=== PATIENT | male | born 1935 | race Caucasian/White ===

== ENCOUNTER 2020-06-20 18:18 | Emergency (ER) | payer OTHER ==
[~2020-06-20 18:18] MED LIST: GLIM2TAB30 PO; LEVO5TAB13 PO; NAPR375T6 PO; OMEP40CA13 PO; PRAV20TA4 PO; TYL3 PO; UBID100C45 PO
== END 2020-06-20 20:29 | disposition home or self-care (01) ==
LOC: EDH 18:18
DX: K40.90 Unilateral inguinal hernia, without obstruction or gangrene, not specified as recurrent (principal); I10 Essential (primary) hypertension; E11.9 Type 2 diabetes mellitus without complications; Z95.0 Presence of cardiac pacemaker
CPT/HCPCS: 76870

== ENCOUNTER → 2020-09-03 | Outpatient (CLI) | payer OTHER ==
[~2020-09-03] MED LIST changes: -OMEP40CA13 PO; +OMEP40CA21 PO
== END | disposition home or self-care (01) ==
LOC: SHCH 13:47
PROVIDERS: ATTEND Internal Medicine Cardiovascular Disease
DX: I10 Essential (primary) hypertension (principal); E78.5 Hyperlipidemia, unspecified
CPT/HCPCS: 93306; 93356

== ENCOUNTER → 2020-09-25 | Outpatient (CLI) | payer OTHER ==
[~2020-09-25] VITALS: Ht 185.4 cm; Wt 75.7 kg
[~2020-09-25] MED LIST changes: +REGADENOSON 0.4 MG/5 ML PF SYG IVP SCH
== END | disposition home or self-care (01) ==
LOC: SHCH 09:01
PROVIDERS: ATTEND Internal Medicine Cardiovascular Disease
DX: I49.5 Sick sinus syndrome (principal); I10 Essential (primary) hypertension; I11.9 Hypertensive heart disease without heart failure
CPT/HCPCS: 78452; 93017; 96374; A9500 ×2; J2785